=== PATIENT | female | born 1940 | race Caucasian/White ===

== ENCOUNTER 2023-11-03 20:59 | Emergency (ER) | payer MEDICARE, OTHER ==
[~2023-11-03] VITALS: Ht 160 cm; Wt 72.7 kg
[~2023-11-03 20:59] MED LIST: FERR325T27 PO; GABA-1181 PO; INSLAN SQ; LEVO50 GT; LOSA-382 GT; METF-445 PO; SIMV-260 PO
[2023-11-03 21:13] VITALS: BP 124/72; PULSE 76; RESP 16; TEMP 97.7
[2023-11-03] MEDS ORDERED: GENTOS OS (21:28)
[2023-11-03] MEDS ORDERED: INSU100V SQ (21:28)
[2023-11-03] MEDS ORDERED: MELA5TAB40 GT (21:28)
[2023-11-03] MEDS ORDERED: INSU3INS3 SQ (21:28)
[2023-11-03] MEDS ORDERED: ATOR10TA GT (21:28)
[2023-11-03] MEDS ORDERED: LACT10SO85 PO (21:28)
[2023-11-03] MEDS ORDERED: HEPA500018 SQ (21:28)
[2023-11-03] MEDS ORDERED: MULT9LIQ6 GT (21:28)
== END 2023-11-04 04:04 | disposition home or self-care (01) ==
LOC: EMS 21:00
DX: K94.23 Gastrostomy malfunction (principal); E11.9 Type 2 diabetes mellitus without complications; I10 Essential (primary) hypertension; E03.9 Hypothyroidism, unspecified; F03.90 Unspecified dementia, unspecified severity, without behavioral disturbance, psychotic disturbance, mood disturbance, and anxiety
CPT/HCPCS: 99282; Z7502

== ENCOUNTER 2023-11-10 23:43 | Emergency (ER) | payer MEDICARE, OTHER ==
[~2023-11-10] VITALS: Ht 162.6 cm; Wt 90.0 kg
[~2023-11-10 23:43] MED LIST changes: +ATOR10TA GT; -FERR325T27 PO; -GABA-1181 PO; +GENTOS OS; +HEPA500018 SQ; -INSLAN SQ; +INSU100V SQ; +INSU3INS3 SQ; +LACT10SO85 PO; +MELA5TAB40 GT; -METF-445 PO; +MULT9LIQ6 GT; -SIMV-260 PO
[2023-11-11 00:27] VITALS: TEMP 97.8
[2023-11-11] MEDS ORDERED: SODI650T33 GT (00:56)
[2023-11-11] MEDS ORDERED: DOCU-385 PO (00:56)
[2023-11-11] MEDS ORDERED: LEVE500S7 GT (00:56)
[2023-11-11] MEDS ORDERED: HEPA500018 SQ (00:56)
[2023-11-11] MEDS ORDERED: MAGN-169 PO (00:56)
[2023-11-11] MEDS ORDERED: ALBU18HF12 IH (00:56)
[2023-11-11] MEDS ORDERED: GUAIF10 GT (00:56)
[2023-11-11] MEDS ORDERED: LEVE500T8 PO (00:56)
[2023-11-11] MEDS ORDERED: IOHEXOL 9 MG/ML 500 ML BOTTLE GT ONE (02:15)
[2023-11-11 02:29] LABS: BASOPHILS % (AUTO) 0.2 % (0.0-2.0); EOSINOPHILS % (AUTO) 1.6 % (1.0-6.0); HEMATOCRIT 46.4 % (36-46); HEMOGLOBIN 15.6 g/dL (12.0-16.0); LYMPHOCYTES % (AUTO) 31.6 % (22.0-44.0); MEAN CORPUSCULAR HEMOGLOBIN 32.2 pg (26.0-34.0); MEAN CORPUSCULAR HGB CONC 33.6 G/dL (31.0-37.0); MEAN CORPUSCULAR VOLUME 96 fL (80-100); MONOCYTES # (AUTO) 0.6 K/uL (0.1-1.0); MONOCYTES % (AUTO) 6.7 % (2.0-9.0); NEUTROPHILS # (AUTO) 5.7 K/uL (1.8-7.7); NEUTROPHILS % (AUTO) 59.9 % (40.0-70.0); PLATELET COUNT (AUTO) 271 K/uL (150-450); RED BLOOD CELL COUNT(AUTO) 4.83 MIL/uL (4.00-5.20); RED CELL DISTRIBUTION WIDTH 14.4 % (11.5-14.5); WHITE BLOOD COUNT (AUTO) 9.5 K/uL (4.5-11.0)
[2023-11-11 02:45] LABS: ANION GAP 13 mmol/L (8-16); CARBON DIOXIDE 25 mmol/L (22-29); CHLORIDE 104 mmol/L (98-107); CREATININE 0.77 mg/dL (0.60-1.30); GLOMERULAR FILTR. RATE CALC > 60 mL/min (>60); GLUCOSE,RANDOM 107 mg/dL (70-110); SODIUM SERUM 142 mmol/L (136-145); UREA NITROGEN, BLOOD 24 mg/dL (7-18)
[2023-11-11 02:53] LABS: LACTIC ACID 1.2 mmol/L (0.4-2.0); TROPONIN I-HIGH SENSITIVITY 30 ng/L (<51)
[2023-11-11 03:00] LABS: ALANINE AMINOTRANSFERASE 23 U/L (12-78); ALBUMIN 3.7 g/dL (3.4-5.0); ALKALINE PHOSPHATASE 103 U/L (46-116); ASPARTATE AMINOTRANSFERASE 25 U/L (15-37); LIPASE 18 U/L (16-77); TOTAL PROTEIN, SERUM 7.4 g/dL (6.4-8.2)
[2023-11-11 06:30] VITALS: BP 129/67; PULSE 67; RESP 20
== END 2023-11-11 08:32 | disposition home or self-care (01) ==
LOC: EMS 23:45
DX: K94.23 Gastrostomy malfunction (principal); E44.0 Moderate protein-calorie malnutrition; F03.90 Unspecified dementia, unspecified severity, without behavioral disturbance, psychotic disturbance, mood disturbance, and anxiety; E11.9 Type 2 diabetes mellitus without complications; I10 Essential (primary) hypertension; E03.9 Hypothyroidism, unspecified; Z86.73 Personal history of transient ischemic attack (TIA), and cerebral infarction without residual deficits
CPT/HCPCS: 74176; 80053; 83605; 83690; 84484; 85025; 99284

== ENCOUNTER 2024-02-27 10:39 | Inpatient (IN) | payer MEDICARE, OTHER ==
[~2024-02-27] VITALS: Ht 167.6 cm; Wt 81.2 kg
[~2024-02-27 10:39] MED LIST changes: +ALBU18HF12 IH; +DOCU-385 PO; +GUAIF10 GT; +LEVE500S7 GT; +LEVE500T8 PO; +MAGN-169 PO; +SODI650T33 GT
[2024-02-27] MEDS ORDERED: 0.9% SODIUM CHLORIDE 10 ML SYRINGE IVP PRN ×2 (10:45→13:45)
[2024-02-27] MEDS ORDERED: INSLAN SQ (10:53)
[2024-02-27] MEDS ORDERED: LEVE500S10 GT (10:53)
[2024-02-27 10:55] VITALS: PULSE 111; RESP 30; O2SAT 100
[2024-02-27] MEDS: IPRATROPIUM BROMIDE 0.5 MG/2.5 ML NEB SOLUTION NEB ONE (11:01)
[2024-02-27] MEDS: ALBUTEROL SULFATE 2.5 MG/0.5 ML NEB SOLUTION NEB ONE (11:02)
[2024-02-27 11:07] VITALS: PULSE 119; RESP 26; O2SAT 100
[2024-02-27] MEDS: AZITHROMYCIN 500 MG/NS 250 ML IV ONE (11:08)
[2024-02-27] MEDS: PIPERACILLIN/TAZO 3.375 GM/D5W 50 ML IV ONE (11:08)
[2024-02-27] MEDS: SODIUM CHLORIDE 0.9% 1,000 ML IV ONE ×2 (11:09→13:26)
[2024-02-27] MEDS: ACETAMINOPHEN 1000 MG/ISO-OSM 100 ML IV ONE (11:09)
[2024-02-27] MEDS: MethylPREDNISolone SOD SUCC 125 MG/2 ML VIAL IVP ONE (11:10)
[2024-02-27 11:31] LABS: HEMATOCRIT 42.9 % (36-46); HEMOGLOBIN 14.5 g/dL (12.0-16.0); MEAN CORPUSCULAR HEMOGLOBIN 31.3 pg (26.0-34.0); MEAN CORPUSCULAR HGB CONC 33.9 G/dL (31.0-37.0); MEAN CORPUSCULAR VOLUME 92 fL (80-100); PLATELET COUNT (AUTO) 218 K/uL (150-450); RED BLOOD CELL COUNT(AUTO) 4.65 MIL/uL (4.00-5.20); RED CELL DISTRIBUTION WIDTH 16.4 % (11.5-14.5); WHITE BLOOD COUNT (AUTO) 19.7 K/uL (4.5-11.0)
[2024-02-27 11:40] LABS: BAND NEUTROPHILS % (MANUAL) 0 % (0-5)
[2024-02-27 11:44] LABS: ANION GAP 10 mmol/L (8-16); CALCIUM, TOTAL 8.2 mg/dL (8.8-10.5); CARBON DIOXIDE 23 mmol/L (22-29); CHLORIDE 97 mmol/L (98-107); CREATININE 0.86 mg/dL (0.60-1.30); GLOMERULAR FILTR. RATE CALC > 60 mL/min (>60); GLUCOSE,RANDOM 340 mg/dL (70-110); POTASSIUM 3.5 mmol/L (3.5-5.1); SODIUM SERUM 130 mmol/L (136-145); UREA NITROGEN, BLOOD 24 mg/dL (7-18)
[2024-02-27] MEDS: VANCOMYCIN 1.25 GM/WATER(PEG) 250 ML IV ONE (11:46)
[2024-02-27 11:49] LABS: B-TYPE NATRIURETIC PEPTIDE 53 pg/mL (0-100)
[2024-02-27 11:53] LABS: LACTIC ACID 1.4 mmol/L (0.4-2.0)
[2024-02-27 11:57] LABS: TROPONIN I-HIGH SENSITIVITY 31 ng/L (<51)
[2024-02-27 11:58] LABS: LYMPHOCYTES % (MANUAL) 7 % (22-44); MONOCYTES % (MANUAL) 4 % (2-9); SEGMENTED NEUTROPHILS % 89 % (40-70); TOTAL CELLS COUNTED 100
[2024-02-27 12:02] LABS: ALANINE AMINOTRANSFERASE 14 U/L (12-78); ALBUMIN 2.6 g/dL (3.4-5.0); ALKALINE PHOSPHATASE 157 U/L (46-116); ASPARTATE AMINOTRANSFERASE 14 U/L (15-37); CREATINE KINASE, TOTAL ONLY 15 U/L (26-192); TOTAL PROTEIN, SERUM 7.1 g/dL (6.4-8.2)
[2024-02-27 12:53] LABS: APPEARANCE,URINE HAZY (CLEAR); BILIRUBIN,URINE NEGATIVE (NEGATIVE); COLOR,URINE YELLOW (YELLOW); GLUCOSE, URINE (UA) 300-500 mg/dL (NEGATIVE); KETONES,URINE NEGATIVE (NEGATIVE); LEUKOCYTE ESTERASE ,URINE MODERATE (NEGATIVE); NITRATE,URINE POSITIVE (NEGATIVE); OCCULT BLOOD,URINE NEGATIVE (NEGATIVE); PH,URINE 5.5 (5.0-8.0); PROTEIN,URINE 30-70 mg/dL (NEGATIVE); SPECIFIC GRAVITIY, URINE 1.026 (1.003-1.030); UROBILINOGEN,URINE <=1.0 mg/dL (<=1.0)
[2024-02-27 13:05] LABS: BACTERIA,URINE Many /HPF (None Seen); RBC,URINE 0-2 /HPF (0-2); SQUAMOUS EPITHELIAL CELL,UR Many /LPF (None Seen)
[2024-02-27] MEDS ORDERED: ATOR20TA65 GT (13:27)
[2024-02-27] MEDS ORDERED: ONDANSETRON HCL 4 MG/2 ML VIAL IVP PRN (13:45)
[2024-02-27] MEDS: NOREPINEPHRINE 8 MG/0.9 % NACL 250 ML IV PRN (14:04)
[2024-02-27 15:00] LABS: INFLUENZA A-RTPCR,COMBO NEGATIVE (NEGATIVE); INFLUENZA B-RTPCR,COMBO NEGATIVE (NEGATIVE); RESPIRATORY SYNCYTIAL VRS-PCR NEGATIVE (NEGATIVE); SARS COVID19 RTPCR, COMBO NEGATIVE (NEGATIVE)
[2024-02-27 16:00] VITALS: BP 107/50; PULSE 78; RESP 14; TEMP 98.3; O2SAT 98
[2024-02-27 20:00] VITALS: BP 107/49; PULSE 89; RESP 18; TEMP 97.3; O2SAT 94
[2024-02-28] VITALS: BP 116/55; PULSE 86; RESP 22; TEMP 97.4; O2SAT 95
[2024-02-28] MEDS ORDERED: ONDANSETRON HCL 4 MG/2 ML VIAL IVP PRN
[2024-02-28] MEDS ORDERED: ACETAMINOPHEN 325 MG TABLET PO PRN
[2024-02-28] MEDS ORDERED: ALBUTEROL SULFATE 2.5 MG/0.5 ML NEB SOLUTION NEB PRN
[2024-02-28] MEDS ORDERED: IPRATROPIUM BROMIDE 0.5 MG/2.5 ML NEB SOLUTION NEB PRN
[2024-02-28] MEDS ORDERED: BISACODYL 10 MG RECTAL RECTAL SUPPOSITORY PR PRN
[2024-02-28] MEDS ORDERED: ZOLPIDEM TARTRATE 5 MG TABLET PO PRN
[2024-02-28] MEDS ORDERED: HYDROCODONE/ACETAMINOPHEN 5-325 MG TABLET PO PRN
[2024-02-28] MEDS ORDERED: MORPHINE SULFATE 2 MG/ML SYRINGE IVP PRN
[2024-02-28] MEDS ORDERED: MAGNESIUM HYDROXIDE SUSPENSION 30 ML UDCUP PO PRN
[2024-02-28] MEDS: HEPARIN SODIUM,PORCINE 5,000 UNITS/ML VIAL SQ SCH (00:38)
[2024-02-28] MEDS: SODIUM CHLORIDE 0.9% 1,000 ML IV SCH (00:38)
[2024-02-28] MEDS: PIPERACILLIN/TAZO 3.375 GM/D5W 50 ML IV SCH (00:39)
[2024-02-28 02:16] LABS: C.DIFF GDH ANTIGEN, Stool Positive (Negative); C.DIFF TOXINS A&B, Stool Positive (Negative)
[2024-02-28 04:00] VITALS: BP 113/50; PULSE 64; RESP 20; TEMP 97.2; O2SAT 96
[2024-02-28 06:03] LABS: HEMATOCRIT 43.9 % (36-46); HEMOGLOBIN 14.5 g/dL (12.0-16.0); MEAN CORPUSCULAR HGB CONC 33.1 G/dL (31.0-37.0); MEAN CORPUSCULAR VOLUME 94 fL (80-100); PLATELET COUNT (AUTO) 229 K/uL (150-450); RED BLOOD CELL COUNT(AUTO) 4.69 MIL/uL (4.00-5.20); RED CELL DISTRIBUTION WIDTH 16.1 % (11.5-14.5); WHITE BLOOD COUNT (AUTO) 19.7 K/uL (4.5-11.0)
[2024-02-28 06:12] LABS: CALCIUM, TOTAL 8.6 mg/dL (8.8-10.5); CREATININE 0.96 mg/dL (0.60-1.30); POTASSIUM 3.5 mmol/L (3.5-5.1)
[2024-02-28] MEDS ORDERED: NOREPINEPHRINE 8 MG/0.9 % NACL 250 ML IV ONE (06:20)
[2024-02-28] MEDS: NOREPINEPHRINE 8 MG/0.9 % NACL 250 ML IV PRN (06:37)
[2024-02-28] MEDS: LEVOTHYROXINE SODIUM 50 MCG TABLET GT SCH (07:55)
[2024-02-28] MEDS: PANTOPRAZOLE SODIUM 40 MG/VIAL IVP SCH (07:55)
[2024-02-28 08:00] VITALS: BP 90/34; PULSE 57; RESP 18; TEMP 98.1; O2SAT 97
[2024-02-28] MEDS ORDERED: VANCOMYCIN 750 MG/WATER(PEG) 150 ML IV SCH (08:00)
[2024-02-28] MEDS ORDERED: VANCOMYCIN 1.25 GM/WATER(PEG) 250 ML IV SCH (08:00)
[2024-02-28] MEDS: VANCOMYCIN 1.5 GM/WATER(PEG) 300 ML IV SCH (08:03)
[2024-02-28] MEDS: DOCUSATE SODIUM 100 MG CAPSULE PO SCH (08:04)
[2024-02-28 09:51] LABS: BAND NEUTROPHILS % (MANUAL) 0 % (0-5)
[2024-02-28 09:52] LABS: LYMPHOCYTES % (MANUAL) 4 % (22-44); MONOCYTES % (MANUAL) 3 % (2-9); SEGMENTED NEUTROPHILS % 93 % (40-70); TOTAL CELLS COUNTED 100
[2024-02-28] MEDS ORDERED: DEXTROSE 50%-WATER 25 GM/50 ML SYRINGE IVP PRN (10:00)
[2024-02-28] MEDS: LevETIRAcetam 100 MG/ML 5 ML SOLUTION UDCUP GT SCH (10:02)
[2024-02-28 12:00] VITALS: BP 109/45; PULSE 58; PULSE 62; RESP 23; TEMP 97.9; O2SAT 99
[2024-02-28] MEDS: VANCOMYCIN HCL 125 MG/2.5 ML SOLUTION ORAL.SYG PEG SCH (13:19)
[2024-02-28] MEDS: *CLINICAL-CEFEPIME DOSING CLINICAL ONE (14:55)
[2024-02-28 16:00] VITALS: BP 98/42; PULSE 56; RESP 20; TEMP 98.4; O2SAT 100
[2024-02-28] MEDS: CEFEPIME HCL 2 GM in DEXTROSE 5%-WATER 50 ML IV SCH (17:16)
[2024-02-28] MEDS: MetroNIDAZOLE 500 MG TABLET GT SCH (17:17)
[2024-02-28] MEDS: VANCOMYCIN HCL 125 MG/2.5 ML SOLUTION ORAL.SYG GT SCH (18:32)
[2024-02-28 20:00] VITALS: BP 102/63; PULSE 63; RESP 18; TEMP 98.7; O2SAT 100
[2024-02-28] MEDS ORDERED: POTASSIUM CHL 10 MEQ/WATER 50 ML IV PRN (20:45)
[2024-02-28] MEDS ORDERED: POTASSIUM CHLORIDE 20 MEQ ER TABLET PO PRN (20:45)
[2024-02-28] MEDS: ATORVASTATIN CALCIUM 20 MG TABLET GT SCH (21:06)
[2024-02-28] MEDS: POTASSIUM CHLORIDE 10% 40 MEQ/30 ML LIQUID UDCUP PEG PRN (21:06)
[2024-02-29] VITALS (7 sets, daily range): BP systolic 110–129; BP diastolic 43–69; PULSE 63–83; RESP 18–23; TEMP 98–99.1; O2SAT 99–100
[2024-02-29] MEDS: POTASSIUM CHLORIDE 10% 40 MEQ/30 ML LIQUID UDCUP PEG PRN (01:51)
[2024-02-29 06:12] LABS: BASOPHILS % (AUTO) 0.3 % (0.0-2.0); EOSINOPHILS % (AUTO) 0.1 % (1.0-6.0); HEMOGLOBIN 12.8 g/dL (12.0-16.0); LYMPHOCYTES # (AUTO) 1.9 K/uL (1.0-4.8); LYMPHOCYTES % (AUTO) 12.9 % (22.0-44.0); MEAN CORPUSCULAR HEMOGLOBIN 30.8 pg (26.0-34.0); MEAN CORPUSCULAR HGB CONC 32.8 G/dL (31.0-37.0); MEAN CORPUSCULAR VOLUME 94 fL (80-100); MONOCYTES # (AUTO) 1.1 K/uL (0.1-1.0); MONOCYTES % (AUTO) 7.6 % (2.0-9.0); NEUTROPHILS # (AUTO) 11.5 K/uL (1.8-7.7); NEUTROPHILS % (AUTO) 79.1 % (40.0-70.0); PLATELET COUNT (AUTO) 235 K/uL (150-450); RED BLOOD CELL COUNT(AUTO) 4.15 MIL/uL (4.00-5.20); WHITE BLOOD COUNT (AUTO) 14.6 K/uL (4.5-11.0)
[2024-02-29 06:19] LABS: ANION GAP 9 mmol/L (8-16); CALCIUM, TOTAL 8.4 mg/dL (8.8-10.5); CARBON DIOXIDE 22 mmol/L (22-29); CHLORIDE 112 mmol/L (98-107); CREATININE 0.68 mg/dL (0.60-1.30); GLOMERULAR FILTR. RATE CALC > 60 mL/min (>60); GLUCOSE,RANDOM 250 mg/dL (70-110); POTASSIUM 4.4 mmol/L (3.5-5.1); SODIUM SERUM 143 mmol/L (136-145); UREA NITROGEN, BLOOD 18 mg/dL (7-18)
[2024-02-29 07:01] LABS: GLUCOMETER DEV NAME(LOC) ICU.S6; GLUCOSE,POINT OF CARE 211 MG/DL (70-110)
[2024-02-29] MEDS ORDERED: DEXTROSE 50%-WATER 25 GM/50 ML SYRINGE IVP PRN ×2 (07:45→11:15)
[2024-02-29 08:09] LABS: THYROID STIMULATING HORMONE 2.43 uIU/mL (0.36-3.74)
[2024-02-29] MEDS: VANCOMYCIN 750 MG/WATER(PEG) 150 ML IV SCH (08:13)
[2024-02-29] MEDS: INSULIN LISPRO 100 UNITS/ML SQ PRN (12:07)
[2024-02-29 12:56] LABS: GLUCOMETER DEV NAME(LOC) ICUN.5; GLUCOSE,POINT OF CARE 177 MG/DL (70-110)
[2024-02-29] MEDS: CEFEPIME HCL 2 GM in DEXTROSE 5%-WATER 50 ML IV SCH (14:12)
[2024-02-29] MEDS: MIDODRINE HCL 5 MG TABLET PO SCH (14:12)
[2024-02-29] MEDS ORDERED: SODIUM CHLORIDE 0.9% 250 ML IV ONE (21:47)
[2024-02-29 22:25] LABS: GLUCOMETER DEV NAME(LOC) 5S.2D; GLUCOSE,POINT OF CARE 124 MG/DL (70-110)
[2024-03-01] VITALS (8 sets, daily range): BP systolic 110–155; BP diastolic 52–72; PULSE 61–84; RESP 18; TEMP 97.2–98.1
[2024-03-01 01:06] LABS: GLUCOMETER DEV NAME(LOC) ICU.S6; GLUCOSE,POINT OF CARE 122 MG/DL (70-110)
[2024-03-01 06:19] LABS: ANION GAP 8 mmol/L (8-16); CALCIUM, TOTAL 8.3 mg/dL (8.8-10.5); CARBON DIOXIDE 22 mmol/L (22-29); CHLORIDE 113 mmol/L (98-107); GLOMERULAR FILTR. RATE CALC > 60 mL/min (>60); GLUCOSE,RANDOM 143 mg/dL (70-110); POTASSIUM 3.4 mmol/L (3.5-5.1); SODIUM SERUM 143 mmol/L (136-145); UREA NITROGEN, BLOOD 15 mg/dL (7-18); VANCOMYCIN,RANDOM 24.6 mcg/mL (25.0-50.0)
[2024-03-01 07:36] LABS: GLUCOMETER DEV NAME(LOC) 5S.2D; GLUCOSE,POINT OF CARE 132 MG/DL (70-110)
[2024-03-01] MEDS: VANCOMYCIN 1.25 GM/WATER(PEG) 250 ML IV SCH (10:09)
[2024-03-01 19:21] LABS: GLUCOMETER DEV NAME(LOC) 5S.1B; GLUCOSE,POINT OF CARE 139 MG/DL (70-110)
[2024-03-01 19:21] LABS: GLUCOMETER DEV NAME(LOC) 5S.1B; GLUCOSE,POINT OF CARE 158 MG/DL (70-110)
[2024-03-02] VITALS (7 sets, daily range): BP systolic 111–132; BP diastolic 54–62; PULSE 76–87; RESP 18–20; TEMP 97.1–99.6
[2024-03-02 02:06] LABS: GLUCOMETER DEV NAME(LOC) 5S.2D; GLUCOSE,POINT OF CARE 170 MG/DL (70-110)
[2024-03-02 06:44] LABS: ANION GAP 10 mmol/L (8-16); CALCIUM, TOTAL 7.5 mg/dL (8.8-10.5); CARBON DIOXIDE 20 mmol/L (22-29); CHLORIDE 113 mmol/L (98-107); GLOMERULAR FILTR. RATE CALC > 60 mL/min (>60); GLUCOSE,RANDOM 148 mg/dL (70-110); POTASSIUM 3.4 mmol/L (3.5-5.1); SODIUM SERUM 143 mmol/L (136-145); UREA NITROGEN, BLOOD 12 mg/dL (7-18)
[2024-03-02 08:10] LABS: GLUCOMETER DEV NAME(LOC) 5S.1B; GLUCOSE,POINT OF CARE 145 MG/DL (70-110)
[2024-03-02 11:39] LABS: BASOPHILS % (AUTO) 0.8 % (0.0-2.0); EOSINOPHILS % (AUTO) 3.6 % (1.0-6.0); HEMATOCRIT 36.5 % (36-46); LYMPHOCYTES % (AUTO) 26.2 % (22.0-44.0); MEAN CORPUSCULAR HEMOGLOBIN 30.9 pg (26.0-34.0); MEAN CORPUSCULAR HGB CONC 32.9 G/dL (31.0-37.0); MEAN CORPUSCULAR VOLUME 94 fL (80-100); MONOCYTES # (AUTO) 0.6 K/uL (0.1-1.0); MONOCYTES % (AUTO) 8.3 % (2.0-9.0); NEUTROPHILS # (AUTO) 4.8 K/uL (1.8-7.7); NEUTROPHILS % (AUTO) 61.1 % (40.0-70.0); PLATELET COUNT (AUTO) 222 K/uL (150-450); RED BLOOD CELL COUNT(AUTO) 3.89 MIL/uL (4.00-5.20); RED CELL DISTRIBUTION WIDTH 16.2 % (11.5-14.5); WHITE BLOOD COUNT (AUTO) 7.8 K/uL (4.5-11.0)
[2024-03-02 12:50] LABS: GLUCOMETER DEV NAME(LOC) 5S.2D; GLUCOSE,POINT OF CARE 140 MG/DL (70-110)
[2024-03-02] MEDS: ERTAPENEM SODIUM 1 GM in SODIUM CHLORIDE 0.9% 50 ML IV SCH (18:47)
[2024-03-02 22:21] LABS: GLUCOMETER DEV NAME(LOC) 5N.1D; GLUCOSE,POINT OF CARE 173 MG/DL (70-110)
[2024-03-03 01:25] VITALS: BP 128/67; PULSE 77; RESP 20; TEMP 97.8
[2024-03-03 05:43] VITALS: BP 107/63; PULSE 64; RESP 20; TEMP 98.2
[2024-03-03 06:40] LABS: GLUCOMETER DEV NAME(LOC) 5S.2D; GLUCOSE,POINT OF CARE 149 MG/DL (70-110)
[2024-03-03 08:02] LABS: ANION GAP 8 mmol/L (8-16); CALCIUM, TOTAL 8.2 mg/dL (8.8-10.5); CARBON DIOXIDE 23 mmol/L (22-29); CHLORIDE 112 mmol/L (98-107); GLOMERULAR FILTR. RATE CALC > 60 mL/min (>60); GLUCOSE,RANDOM 123 mg/dL (70-110); POTASSIUM 3.4 mmol/L (3.5-5.1); SODIUM SERUM 143 mmol/L (136-145); UREA NITROGEN, BLOOD 10 mg/dL (7-18)
[2024-03-03 08:15] LABS: GLUCOMETER DEV NAME(LOC) 5S.1B; GLUCOSE,POINT OF CARE 101 MG/DL (70-110)
[2024-03-03 08:17] VITALS: BP 127/65; PULSE 77; RESP 18; TEMP 97.8
[2024-03-03 08:19] LABS: VANCOMYCIN,RANDOM 17.5 mcg/mL (25.0-50.0)
[2024-03-03] MEDS ORDERED: SODIUM CHLORIDE 0.9% 100 ML ONE (08:49)
[2024-03-03 11:01] VITALS: BP 141/72; PULSE 73; RESP 17; TEMP 98.4
[2024-03-03 12:20] LABS: GLUCOMETER DEV NAME(LOC) 5S.2D; GLUCOSE,POINT OF CARE 151 MG/DL (70-110)
[2024-03-03] MEDS ORDERED: SODIUM CHLORIDE 0.9% 250 ML IV ONE (13:21)
[2024-03-03] MEDS: POTASSIUM CHL 10 MEQ/WATER 50 ML IV PRN (13:29)
[2024-03-03 18:16] LABS: GLUCOMETER DEV NAME(LOC) 5N.1D; GLUCOSE,POINT OF CARE 186 MG/DL (70-110)
[2024-03-03 20:10] VITALS: BP 119/67; PULSE 84; RESP 18; TEMP 99.1
[2024-03-04 00:15] VITALS: BP 126/73; PULSE 89; RESP 18; TEMP 98
[2024-03-04 05:50] VITALS: BP 123/65; PULSE 77; RESP 18; TEMP 99.1
[2024-03-04 06:41] LABS: GLUCOMETER DEV NAME(LOC) 5N.1D; GLUCOSE,POINT OF CARE 197 MG/DL (70-110)
[2024-03-04 07:22] LABS: ANION GAP 8 mmol/L (8-16); CALCIUM, TOTAL 8.6 mg/dL (8.8-10.5); CARBON DIOXIDE 24 mmol/L (22-29); CHLORIDE 108 mmol/L (98-107); CREATININE 0.61 mg/dL (0.60-1.30); GLOMERULAR FILTR. RATE CALC > 60 mL/min (>60); GLUCOSE,RANDOM 187 mg/dL (70-110); POTASSIUM 4.1 mmol/L (3.5-5.1); SODIUM SERUM 140 mmol/L (136-145); UREA NITROGEN, BLOOD 10 mg/dL (7-18)
[2024-03-04 09:05] VITALS: BP 126/56; PULSE 77; RESP 20; TEMP 98.6
[2024-03-04 11:56] LABS: GLUCOMETER DEV NAME(LOC) 5N.2C; GLUCOSE,POINT OF CARE 169 MG/DL (70-110)
[2024-03-04 12:24] VITALS: BP 145/64; PULSE 79; RESP 19; TEMP 98.2
[2024-03-04] MEDS ORDERED: HEPA500018 SQ (13:49)
[2024-03-04 14:40] LABS: GLUCOMETER DEV NAME(LOC) 5S.1B; GLUCOSE,POINT OF CARE 141 MG/DL (70-110)
[2024-03-04 15:56] VITALS: BP 119/52; PULSE 80; RESP 20; TEMP 98.5
[2024-03-04] MEDS ORDERED: ERTA1VIA3 IV (16:31)
[2024-03-04] MEDS ORDERED: VANC125C6 PEG (16:32)
[2024-03-04] MEDS ORDERED: VANC125C12 PEG (16:34)
== END 2024-03-04 17:45 | DRG 871 ==
LOC: EMS 10:47 → 5S 13:45 → ICUN 14:04 → ICU 15:13 → 5S 02-29 19:36
PROVIDERS: ADMIT Hospitalist; ATTEND Hospitalist
PROC: 05HA33Z Insertion of Infusion Device into Left Brachial Vein, Percutaneous Approach (ICD-10-PCS; principal; 2024-03-02)
PROC: B54NZZA Ultrasonography of Left Upper Extremity Veins, Guidance (ICD-10-PCS; 2024-03-02)
DX: A41.9 Sepsis, unspecified organism (principal); J18.9 Pneumonia, unspecified organism; R65.21 Severe sepsis with septic shock; N39.0 Urinary tract infection, site not specified; E87.1 Hypo-osmolality and hyponatremia; A04.72 Enterocolitis due to Clostridium difficile, not specified as recurrent; Z16.12 Extended spectrum beta lactamase (ESBL) resistance; Z16.24 Resistance to multiple antibiotics; G40.909 Epilepsy, unspecified, not intractable, without status epilepticus; Z20.822 Contact with and (suspected) exposure to COVID-19; I48.91 Unspecified atrial fibrillation; E03.9 Hypothyroidism, unspecified; F03.90 Unspecified dementia, unspecified severity, without behavioral disturbance, psychotic disturbance, mood disturbance, and anxiety; R19.7 Diarrhea, unspecified; I10 Essential (primary) hypertension; R13.10 Dysphagia, unspecified; B96.20 Unspecified Escherichia coli [E. coli] as the cause of diseases classified elsewhere; E11.65 Type 2 diabetes mellitus with hyperglycemia; B96.89 Other specified bacterial agents as the cause of diseases classified elsewhere; Y95 Nosocomial condition; Z79.899 Other long term (current) drug therapy; Z87.440 Personal history of urinary (tract) infections
CPT/HCPCS: 0241U; 36245; 36569; 70450; 71045; 76937; 80048; 80053; 80202; 81001; 82550; 82962; 83605; 83880; 84132; 84145; 84443; 84484; 85025; 87040; 87077; 87081; 87086; 87186; 87205; 87324; 87449; 87481; 93005; 94640; 99285; C9113; J0131; J0456; J0692; J1335; J1644; J2543; J2919; J3480; J7030; J7050; J7060; Q9967; 36415-L1; 36415-TC; J7613